=== PATIENT | female | born 1995 | race Caucasian/White ===

== ENCOUNTER → 2022-02-28 | Day surgery (SDC) | payer OTHER ==
[~2022-02-28] MED LIST: Propofol 200 MG/20 ML SDV IV ONE; Sodium Chloride 0.9% 10 ML Syringe FLUSH PRN
[2022-02-28] MEDS: Lactated Ringers 1,000 ML IV SCH (07:41)
[2022-02-28] MEDS: Albuterol/Ipratropium 3.0-0.5 MG/3 ML Neb Soln NEB ONE (08:58)
== END | disposition home or self-care (01) ==
LOC: FB.SDS 06:53
PROVIDERS: ATTEND Surgery
DX: K52.9 Noninfective gastroenteritis and colitis, unspecified (principal); F17.210 Nicotine dependence, cigarettes, uncomplicated; Z86.16 Personal history of COVID-19; Z79.899 Other long term (current) drug therapy; Z88.1 Allergy status to other antibiotic agents
CPT/HCPCS: 00813; 43239; 45380; 81025; 88305; 94640; J2704; J7120; J7620